=== PATIENT | female | born 1980 | race Caucasian/White ===

== ENCOUNTER 2024-12-22 10:54 | Emergency (ER) | payer OTHER, SELFPAY ==
--- NOTE | ~2024-12-22 | XR_ITS ---
EXAMINATION: XR CHEST 2 VIEWS HISTORY: Cough COMPARISON: Comparison is made with the prior examination dated 04/07/2018. FINDINGS: PA and lateral views of the chest are submitted. The lungs are expanded and clear. There is no pleural effusion, pneumothorax, or pulmonary vascular congestion. The heart is normal in size. The bones are intact. XR/XR chest 2V IMPRESSION: No acute cardiopulmonary abnormality. Electronically signed by: Julio Schofield MD 12/22/2024 11:41 AM SARINA
--- NOTE | 2024-12-22 10:57 | ECG_ITS ---
Test Reason : palpitation Blood Pressure : */* mmHG Vent. Rate : 84 BPM Atrial Rate : 84 BPM P-R Int : 98 ms QRS Dur : 78 ms QT Int : 362 ms P-R-T Axes : 25 32 27 degrees QTcB Int : 427 ms Sinus rhythm with short GA Low voltage QRS Borderline ECG When compared with ECG of 07-Apr-2018 16:30, Nonspecific T wave abnormality now evident in Inferior leads T wave amplitude has decreased in Lateral leads Referred By: Generic ED Physician Electronically Signed By: GURMEET BRADLEY
[2024-12-22 11:08] VITALS: BP 119/73; PULSE 84; RESP 18; TEMP 36.7; O2SAT 97; BMI 24.9
--- NOTE | 2024-12-22 11:12 | ED_ITS ---
HPI - General Adult General Chief complaint: Arrhythmia/Palpitations Stated complaint: Chest fluttering randomly chest tightness Related Data Allergies Allergy/AdvReac Type Severity Reaction Status Date / Time No Known Allergies Allergy Unknown Verified 12/22/24 11:10 penicillin V Allergy Unknown hives Verified 12/22/24 11:10 Physical Exam ED Vital Signs: Vital Signs - 24 hr 12/22/24 11:08 12/22/24 14:03 Temperature 98.1 F 98.5 F Pulse Rate 84 88 Respiratory Rate 18 18 Blood Pressure 119/73 123/76 Pulse Oximetry 97 98 Oxygen Delivery Method Room Air BMI result Body Mass Index 24.9 Course Course Course Narrative: Patient had COVID 2 weeks ago and complains of persistent cough, and now has developed intermittent palpitations, as well as a feeling of chest heaviness when she gets her cough over past week Labs x-ray EKG ordered This is rapid medical exam done in triage pending full exam evaluation and disposition by ER provider patient who complained of funny feeling in chest when she coughs a deep infrequent cough 2 weeks after having COVID as well as an intermittent feeling of palpitations, the palpitations never produced dizziness or weakness or fatigue and she is able to do all activities and they pass on her own There is no exertional component no nausea no diaphoresis patient had EKG which showed sinus rhythm of short CT of 98, no acute ST changes no acute ischemic changes Troponin was negative CBC and chemistry were normal Chest x-ray was normal Patient most likely has post COVID symptoms and is Medical Decision Making Lab Data 12/22/24 11:45 12/22/24 11:46 Labs: Lab Results 12/22/24 12/22/24 Range/Units 11:45 11:46 WBC 8.4 (4.8-10.8) X10*3/uL RBC 4.83 (4.20-5.50) X10*6/uL Hgb 13.9 (12.0-16.0) g/dl Hct 41.8 (37.0-47.0) % MCV 86.5 (80.0-98.0) fL MCH 28.8 (27.0-33.0) pg MCHC 33.3 (31.0-35.0) g/dl RDW 12.9 (11.0-16.0) % Plt Count 314 (160-400) X10*3/uL MPV 10.1 (9.4-12.3) fL Immature Gran % (Auto) 0.2 (0.0-0.4) % Neut % (Auto) 67.4 (45-73) % Lymph % (Auto) 20.7 (20-40) % [place] % (Auto) 8.5 (2-11) % Eos % (Auto) 2.4 (0-4) % Baso % (Auto) 0.8 (0-2) % Lymph # (Auto) 1.7 (1.2-4.9) X10*3/uL [place] # (Auto) 0.7 (0.1-1.2) X10*3/uL Eos # (Auto) 0.2 (0.0-0.4) X10*3/uL Baso # (Auto) 0.1 (0.0-0.2) X10*3/uL Abs Immat Gran (auto) 0.02 (0.00-0.03) X10*3/uL Absolute Neuts (auto) 5.7 (2.0-8.3) x10*3/uL Absolute Nucleated RBC 0.000 (0.0-0.012) X10*3/uL Nucleated RBC % (auto) 0.0 (0.0-0.2) /100WBC PT 11.6 (10.9-12.4) SEC INR 1.0 (0.9-1.1) Sodium 143 (135-145) mmol/L Potassium 3.9 (3.3-5.1) mmol/L Chloride 109 H (96-108) mmol/L Carbon Dioxide 27 (22-29) mmol/L Anion Gap 11 L (12-20) BUN 16 (9-16) mg/dL Creatinine 0.78 (0.5-1.4) mg/dL Estim Creat Clear Calc 84.3 Estimated GFR > 60 Random Glucose 87 (60-115) mg/dL Calcium 9.3 (8.4-10.2) mg/dL Troponin I High Sens < 2.7 (<3.5-17.0) ng/L COVID-19 (NOELLE) Negative (Negative) COVID-19 Clin Com See Note Influenza Type A (CHARLA) Negative (Negative) Influenza Type B (CHARLA) Negative (Negative) Influenza A & B Note See Note Discharge Plan Discharge Clinical Impression: Palpitations, Cough, COVID Patient Disposition: Home, Self-Care Additional Instructions: lab work that checked for heart attack was negative, other lab work was negative Chest x-ray was normal EKG no signs of any acute abnormality or worrisome finding As you have palpitations coming intermittently and we did not find their cause follow with primary doctor as you may need a Holter monitor Return any time for dizziness, fainting or feeling faint, any change or worsening chest pain shortness of breath any worse condition or any concerns Print Language: Arabic
[2024-12-22 11:50] LABS: MANUAL DIFF FLAG NO
[2024-12-22 11:51] LABS: Basophils Absolute Auto 0.1 X10*3/uL (0.0-0.2); Basophils Percent Auto 0.8 % (0-2); Eosinophils Absolute Auto 0.2 X10*3/uL (0.0-0.4); Eosinophils Percent Auto 2.4 % (0-4); Hematocrit 41.8 % (37.0-47.0); Hemoglobin 13.9 g/dl (12.0-16.0); Imm Gran Abs Auto 0.02 X10*3/uL (0.00-0.03); Imm Gran Pct Auto 0.2 % (0.0-0.4); Lymphocytes Absolute Auto 1.7 X10*3/uL (1.2-4.9); Lymphocytes Percent Auto 20.7 % (20-40); Mean Corpuscular HGB Conc 33.3 g/dl (31.0-35.0); Mean Corpuscular Hemoglobin 28.8 pg (27.0-33.0); Mean Corpuscular Volume 86.5 fL (80.0-98.0); Mean Platelet Volume 10.1 fL (9.4-12.3); Monocytes Absolute Auto 0.7 X10*3/uL (0.1-1.2); Monocytes Percent Auto 8.5 % (2-11); Neutrophils Absolute Auto 5.7 x10*3/uL (2.0-8.3); Neutrophils Percent Auto 67.4 % (45-73); Platelet Count 314 X10*3/uL (160-400); Red Blood Count 4.83 X10*6/uL (4.20-5.50); Red Cell Distribution Width 12.9 % (11.0-16.0); White Blood Count 8.4 X10*3/uL (4.8-10.8)
[2024-12-22 11:59] LABS: Prothrombin Time 11.6 SEC (10.9-12.4)
[2024-12-22 12:04] LABS: COVID-19 Test Negative (Negative); IDNOW Serial# 55D5AD1C
[2024-12-22 12:06] LABS: Anion Gap 11 (12-20); Blood Urea Nitrogen 16 mg/dL (9-16); Calcium 9.3 mg/dL (8.4-10.2); Carbon Dioxide 27 mmol/L (22-29); Chloride 109 mmol/L (96-108); Creatinine Clr Calc Pharmacy 84.3; Estimated Glomerular Filt Rate > 60; Glucose Random 87 mg/dL (60-115); Potassium 3.9 mmol/L (3.3-5.1); Sodium 143 mmol/L (135-145)
[2024-12-22 12:08] LABS: IDNOW Serial# 16C4AD1C; Influenza A Negative (Negative); Influenza B2 Negative (Negative)
[2024-12-22 12:21] LABS: Troponin-I High Sensitivity < 2.7 ng/L (<3.5-17.0)
[2024-12-22 14:03] VITALS: BP 123/76; PULSE 88; RESP 18; TEMP 36.9; O2SAT 98
--- OUTSIDE RECORDS SUMMARY | 2024-12-22 14:16 | XMS_ITS | Clinical Summary ---
Author Organization [facility] Address [address] [id number] Care Team Providers Care Manager Labor Delivery Name Role Phone Hannah Rice Primary Care Provider [phone] Social History Tobacco Use Types Packs/Day Years Used Date Smoking Tobacco: Never Assessed Comments Unknown Sex and Gender Information Value Date Recorded Sex Assigned at Not on file Legal Sex Female 12:00 PM EST Gender Identity Not on file Sexual Orientation Not on file Plan of Treatment Health Maintenance Due Date Last Done Comments Cervical Cancer Screening 1978 Cologuard 1978 Colon Cancer Screening 1978 Colonoscopy 1978 FOBT / Fit Test 1978 HIV Screening 1978 HPV and Pap Smear 1978 Pap Smear 1978 Sigmoidoscopy 1978 Hepatitis B Vaccines (1 of 3 - 19+ 3-dose series) 1997 DTaP,Tdap,and Td Vaccines (1 - Tdap) 2000 Mammogram 2018 COVID-19 Vaccine ( - 2023-2 5 season) 2024 Influenza Vaccine (#1) 2024 Alcohol/Substance Use Screening 11/22/2024 RSV Vaccine (60+ years old a nd patients) (1 - 1-dose 75+ series) 2053 Pneumococcal Vaccine: Pediat ursula (0-5 Years) and At-Risk Patients (6-64 Years) Aged Out No longer eligible b ased on patient's age to complete this topic Insurance [employer] PPO/EPO/IND Care Teams Manager Labor Delivery Relationship Specialty Start Date End Date Hannah Rice [address] [place] [address] PCP - General 12/27/20
--- OUTSIDE RECORDS SUMMARY | 2024-12-22 14:16 | XMS_ITS | Data Portability ---
Author Organization [facility], , [facility] Address [address] [place] [address] Care Team Providers Care Optical Worker Name Role Phone RAJAN MONROY Primary Care Provider Unavailabl e Assessment No assessment recorded. Plan of Treatment Reminders Order Date Submit Date Provider Last Modified By Organization Details Last Modified Time Details Appointments None record ed. Lab lipid panel, serum 2013 014 [facility], [address] [place] [address], [address], 4 15:26:18 TSH, serum or plasma 2013 014 [facility], [address] [place] [address], [address], 4 16:19:54 wet [place], vagina l 2013 014 [facility], [address] [place] [address], [address], 4 12:35:56 pap, LB + reflex HR HPV if ASC-U, ASC-H, LSIL, HSIL, JOSE LUIS - Reflex HPV testin g for ASCUS and LGSIL 2013 014 mmastroberti [facility] (Out[facility]), [address] [place], [address], 4 10:46:53 CT + NG RNA, PCR, unspec ified specim en 2014 015 [facility], [address] [place] [address], [address], 5 19:22:15 pap, LB + reflex HR HPV if ASC-U, ASC-H, LSIL, HSIL, JOSE LUIS - Reflex HPV testin g for ASCUS and LGSIL 2014 015 [facility] (Outpatient), [address] [place], [address], 5 11:35:31 vitami n D, 1,25-d ihydro xy, serum 2014 015 [facility], [address] [place] [address], [address], 5 15:01:47 vitami n B12 + folate , serum or blood 2014 015 [facility] [address] [place] [address], [address], 5 13:00:11 CBC 2014 015 [facility], [address] [place] [address], [address], 5 17:23:15 pregna ncy test, urine 2015 016 [facility], [address] [place] [address], [address], 6 17:18:19 Referral allerg y referr al - wants allerg y testin g prior to trial meds, sneezi ng, rhinor edward, itchin g 2014 015 MARQUITA Ellie Larry, [address] [facility], [place], [address], 6 05:02:16 Procedures None record ed. Surgeries None record ed. Imaging None record ed. Medication Orders flucon azole 150 mg tablet 2013 Ananda rea [facility][id number], [address] [place] [address], [address], 5 14:40:17 Patient TargetsNo targets recorded. Patient Instructions Encounter Date Encounter Id Patient Instructions Last Modified By Organization Details Last Modified Time 09/18/2014 [id number] Well Visit, Ages 18 to 65: Care Instructions Not available 09/18/2014 14:32:49 My Health To Do List As we discussed and agreed upon at your visit please work on the following: egraef Not available 09/18/2014 12:35:56 10/25/2015 [id number] learning about t he mediterranean diet [email or web address] Not available 10/25/2015 17:37:21 02/14/2016 [id number] After a discussi on of treatment options, which included consideration of best practices, patient preferences, and the patient? s individual lifestyle and treatment goals, as well as consideration and attempted mitigation of any barriers to meeting the patient? s goals, the following treatment plan and objectives were adopted: - we discussed likely viral gastroenteritis - Supportive care: fluids, rest, bland foods (rice, toast, bananas, applesauce, etc.), small amounts of food at a time - Call if persistent temp of 101 or decrease in urination - Call early next week if diarrhea persists and will order stool testing [email or web address] Not available 02/14/2016 13:11:42 Reason for Referral Allergy Referral for [facility] mental allergy wants allergy testing prior to trial meds, sneezing, rhinorrhea, itching Referring Physician: Myesha Hernandez, Family Medicine, Encounter Date: 10/25/2015 Results Created Date Observation Date Name Description Value Unit Range Abnormal Flag Note LastModifiedBy Organization Detail LastModifiedTime 12/11/19 16 12/11/2015 pregn harish test, urine Result negati ve Not Available [address], [address], 12/11/2015 16:56:41 09/18/20 14 09/18/2014 wet [place] , vagin al [place], Vaginal hyphae , no clue cells. Not Available [address], [address], 09/18/2014 12:29:10 09/18/20 14 09/18/2014 lipid panel , serum cholesterol 219 mg/dL <200 mg/dl Hiram able 200-2 39 mg/dl Borde rline High >240 mg/dl High Not Available [address], [address], 09/18/2014 15:26:17 09/18/20 14 09/18/2014 lipid panel , serum triglyceride s 50 mg/dL <150 mg/dL Hilda l 150-1 99 mg/dL Borde rline High 200-4 99 mg/dL High >500 mg/dL Very High Not Available [address], [address], 09/18/2014 15:26:17 09/18/20 14 09/18/2014 lipid panel , serum direct HDL 81 mg/dL Not Available [address], [address], 09/18/2014 15:26:17 09/18/20 14 09/18/2014 LDL, direc t, serum direct LDL 128 mg/dL RISK CATEG ORY LDL GOAL _ CHD or CHD Risk Equiv alent s <100 mg/dl (10-y ear risk >20%) 2+ Risk Facto rs <130 mg/dl (10-y ear risk <= 20%) 0-1 Risk Facto r? <160 mg/dl ? Almos t all peopl e with 0-1 risk facto r have a 10 year risk <10%, thus 10 year risk asses ment in peopl e with 0-1 risk facto r is not herman claire. Not Available [address], [address], 09/18/2014 15:26:19 09/18/20 14 09/18/2014 TSH, serum or plasm a TSH 0.66 uIU/m L 0.50-6 .00 The Ameri can Colle ge of Endoc rinol ogy and Ameri can Thyro id Assoc iatio n recom mend goal TSH value s betwe en 1.0-2 .5 mIU/m L. Not Available [address], [address], 09/18/2014 16:19:54 09/18/20 14 09/23/2014 CT + NG RNA, PCR, unspe cifie d speci men N. gonorrhoeae Neg negati ve Not Available [address], [address], 09/23/2014 14:40:13 09/18/20 14 09/23/2014 CT + NG RNA, PCR, unspe cifie d speci men C. trachomatis Neg negati ve Not Available [address], [address], 09/23/2014 14:40:13 10/25/20 15 10/25/2015 CBC WBC 7.2 K/? ? ?L 4.0-10 .0 Not Available [address], [address], 10/25/2015 17:23:15 10/25/20 15 10/25/2015 CBC RBC 4.64 M/? ? ?L 3.93-5 .22 Not Available [address], [address], 10/25/2015 17:23:15 10/25/20 15 10/25/2015 CBC HGB 13.3 g/dL 11.2-1 5.7 Not Available [address], [address], 10/25/2015 17:23:15 10/25/20 15 10/25/2015 CBC HCT 40.9 % 34.1-4 4.9 Not Available [address], [address], 10/25/2015 17:23:15 10/25/20 15 10/25/2015 CBC MCV 88.1 ? ? ?L 79.4-9 4.8 Not Available [address], [address], 10/25/2015 17:23:15 10/25/20 15 10/25/2015 CBC MCH 28.7 pg 25.6-3 2.2 Not Available [address], [address], 10/25/2015 17:23:15 10/25/20 15 10/25/2015 CBC MCHC 32.5 g/dL 32.2-3 5.5 Not Available [address], [address], 10/25/2015 17:23:15 10/25/20 15 10/25/2015 CBC plt 280.0 K/? ? ?L 182.0- 369.0 Not Available [address], [address], 10/25/2015 17:23:15 10/25/20 15 10/25/2015 CBC MPV 12.3 9.4-12 .3 Not Available [address], [address], 10/25/2015 17:23:15 10/25/20 15 10/25/2015 CBC neut% 54.9 % 34.0-7 1.1 Not Available [address], [address], 10/25/2015 17:23:15 10/25/20 15 10/25/2015 CBC neut# 4.0 1.6-6. 1 Not Available [address], [address], 10/25/2015 17:23:15 10/25/20 15 10/25/2015 CBC lymph % 28.9 % 19.3-5 1.7 Not Available [address], [address], 10/25/2015 17:23:15 10/25/20 15 10/25/2015 CBC lymph # 2.1 K/? ? ?L 1.2-3. 7 Not Available [address], [address], 10/25/2015 17:23:15 10/25/20 15 10/25/2015 CBC mono% 12.0 % 4.7-12 .5 Not Available [address], [address], 10/25/2015 17:23:15 10/25/20 15 10/25/2015 CBC mono# 0.9 0.2-0. 4 high Not Available [address], [address], 10/25/2015 17:23:15 10/25/20 15 10/25/2015 CBC eo% 3.6 % 0.7-5. 8 Not Available [address], [address], 10/25/2015 17:23:15 10/25/20 15 10/25/2015 CBC eo# 0.3 0.0-0. 4 Not Available [address], [address], 10/25/2015 17:23:15 10/25/20 15 10/25/2015 CBC baso% 0.6 % 0.1-1. 2 Not Available [address], [address], 10/25/2015 17:23:15 10/25/20 15 10/25/2015 CBC baso# 0.0 0.0-0. 1 low Not Available [address], [address], 10/25/2015 17:23:15 10/25/20 15 10/25/2015 CBC RDW-CV 12.5 % 11.7-1 4.4 Not Available [address], [address], 10/25/2015 17:23:15 10/25/20 15 10/29/2015 vitam in D, 1,25- dihyd darshan, serum vitamin D, 1,25 (oh)2, total 46 pg/mL 18-72 Not Available [facility] [address], [place], [address], 10/29/2015 15:01:47 10/25/20 15 10/29/2015 vitam in D, 1,25- dihyd darshan, serum vitamin D3, 1,25 (oh)2 46 pg/mL Not Available [facility] [address], [place], [address], 10/29/2015 15:01:47 10/25/20 15 10/29/2015 vitam in D, 1,25- dihyd darshan, serum vitamin D2, 1,25 (oh)2 <8 pg/mL Vitam in D3, 1,25( OH)2 indic ates both endog enous produ ction and suppl ement ation . Vitam in D2, 1,25( OH)2 is an indic ator of exoge ous sourc es, such as diet or suppl ement ation . Inter preta tion and thera py are based on measu remen t of Vitam in D,1,2 5(OH) 2, Total . This test was devstephen sinclair and its sg tical perfo rmanc e royce cteri stics have been deter mined by [facility] Miguel A lopez [facility], [place], [place]. It has not been clear ed or appro magno by the FDA. This assay has been valid ated pursu ant to the CLIA regul ation s and is used for clini rachel purpo ses. Not Available [facility] [address], [place], [address], 10/29/2015 15:01:47 10/25/20 15 10/30/2015 vitam in B12, serum vitamin B12 569 pg/mL 230-10 50 Not Available [address], [place], [address], 10/30/2015 16:13:56 10/25/20 15 10/30/2015 folat e, serum folate 13 NG/mL 3-16 Not Available [address], [address], 10/30/2015 16:13:57 10/25/20 15 11/03/2015 CT + NG RNA, PCR, unspe cifie d speci men N. gonorrhoeae Neg negati ve Not Available [address], [address], 11/03/2015 19:22:14 10/25/20 15 11/03/2015 CT + NG RNA, PCR, unspe cifie d speci men C. trachomatis Neg negati ve Not Available [address], [address], 11/03/2015 19:22:14 10/29/20 15 10/29/2015 HPV, high- risk, cervi rachel source Cervic al Not Available [facility] [address] [place] [address], [address], 10/31/2015 13:59:35 10/29/20 15 10/29/2015 HPV, high- risk, cervi rachel HPV high risk type 16 Negati ve negati ve Not Available [facility] [address] [place], [address], 10/31/2015 13:59:35 10/29/20 15 10/29/2015 HPV, high- risk, cervi rachel HPV high risk type 18 Negati ve negati ve Not Available [facility] [address] [place], [address], 10/31/2015 13:59:35 10/29/20 15 10/29/2015 HPV, high- risk, cervi rachel HPV high risk other types Negati ve negati ve The follo wing Other High Risk HPV types were not detec jasbir: 31, 33, 35, 39, 45, 51, 52, 56, 58, 59, 66, and 68 Test Perfo rmed by: [facility] [place] [facility] [address], [place] [id number] Labor atory Direc tor: Zachary almendarez II, M.D., Ph.D. Not Available [facility] [address] [place], [address], 10/31/2015 13:59:35 02/17/20 16 02/21/2016 wbc, stool fecal leukocyte stain FECAL LEUKO CYTE STAIN MICRO NUMBE R: [id number] TEST STATU S: FINAL SPECI MEN SOURC E: STOOL SPECI MEN QUALI TY: ADEQU ATE FECAL LEUKO CYTE: Moder ate Detec jasbir Not Available [facility] [address], [place], [address], 02/21/2016 09:00:52 02/17/20 16 02/21/2016 giard ia lambl ia Ag, stool giardia Ag, EIA, stool GIARD IA AG, EIA, STOOL MICRO NUMBE R: [id number] TEST STATU S: FINAL SPECI MEN SOURC E: STOOL SPECI MEN QUALI TY: ADEQU ATE RESUL T 1: Not Detec jasbir NOTE: Due to inter mitte nt ezio ing, one negat tuan sampl e does not neces saril y rule out the prese nce of a anthony itic infec tion. Not Available [facility] [address], [place], [address], 02/21/2016 09:00:52 02/17/20 16 02/21/2016 cultu re, stool shiga toxins, EIA w/rfl to E.coli O157 culture SHIGA TOXIN S, EIA W/RFL TO E.COL I O157 CULTU RE MICRO NUMBE R: [id number] TEST STATU S: FINAL SPECI MEN SOURC E: STOOL SPECI MEN QUALI TY: ADEQU ATE RESUL T: Not Detec jasbir Not Available [facility] [address], [place], [address], 02/21/2016 09:00:53 02/17/20 16 02/21/2016 cultu re, stool campylobacte r, culture CAMPY LOBAC TER, CULTU RE MICRO NUMBE R: [id number] TEST STATU S: FINAL SPECI MEN SOURC E: STOOL SPECI MEN QUALI TY: ADEQU ATE RESUL T: No enter ic Campy lobac ter isola jasbir Not Available [facility] [address], [address], 02/21/2016 09:00:53 02/17/20 16 02/21/2016 cultu re, stool salmonella and shigella, culture SALMO JC AND SHIGE LLA, CULTU RE MICRO NUMBE R: [id number] TEST STATU S: FINAL SPECI MEN SOURC E: STOOL SPECI MEN QUALI TY: ADEQU ATE RESUL T: No Salmo jc or Shige lla isola jasbir Not Available [facility] [address], [address], 02/21/2016 09:00:53 Result Notes None recorded. Problems Name Problem SNOMED Code Status Onset Date Resolution Date Notes Provider Name and Address Organization Details Recorded Time Viral gastroenteriti s 135476334 Active Radha Ortiz NP [address] [place] [address], [address] [place] [address] 6 10:29:11 Problem Notes None recorded. Medical Equipment None Reported. Allergies Allergen ID Allergen Name Allergen Category Reaction Reaction Severity Criticality Documentation Date Start Date Code Code System Note Provider Name and Address Organization Details Recorded Time 132799 mold extract environme nt Not available Not available Not available 10/25/2015 60676 8 [facility] 5 14:38:25 Medications Name Sig Start Date Stop Date Status Note LastModified by Organization Details LastModified Time azithromycin 250 mg tablet TAKE 2 TABLET(S) BY MOUTH GIVEN ONCE A DAY FOR 1 DAY. THEN TAKE 1 TABLET DAILY FOR 4 DAYS. active -ac Not Available Not Available Not Available fluconazole 150 mg tablet TAKE 1 TABLET BY MOUTH ONCE active Not Available Not Available No t Available Tamiflu 75 mg capsule TAKE ONE CAPSULE BY MOUTH TWICE A DAY active -ac Not Available Not Available Not Available Vitals Date Recorded Body weight Heart rate Body mass index (BMI) Body height Systolic blood pressure Diastolic blood pressure Provider Name and Address Organization Details Last Updated DateTime 4 11419.2 3099 g 72 /min 20.5 kg/m2 167.64 cm 92 mm[Hg] 70 mm[Hg] Gemini Zuniga LPN [facility] 4 10:38:42 Date Recorded Heart rate Body height Systolic blood pressure Diastolic blood pressure Provider Name and Address Organization Details Last Updated DateTime 10/25/2015 64 /min 167.64 cm 114 mm[Hg] 60 mm[Hg] Margarita salmeron [facility] 10/25/2015 14:49:54 Date Recorded Body weight Body mass index (BMI) Provider Name and Address Organization Details Last Updated DateTime 10/25/2015 85605.244400 g 21.2 kg/m2 Margarita Arvizu [facility] 10/25/2015 14:51:19 Date Recorded Body weight Body height Body mass index (BMI) Provider Name and Address Organization Details Last Updated DateTime 12/11/2015 41749.23425 g 167.64 cm 21.3 kg/m2 Nery Carter [facility] 12/11/2015 16:23:01 Date Recorded Heart rate Body height Body weight Body temperature Body mass index (BMI) Provider Name and Address Organization Details Last Updated DateTime 02/14/2016 92 /min 167.64 cm 68669.19 284 g 98.3 [degF] 21.3 kg/m2 Natalia Kim [facility] 6 12:10:38 Date Recorded Systolic blood pressure Diastolic blood pressure Provider Name and Address Organization Details Last Updated DateTime 12/11/2015 108 mm[Hg] 64 mm[Hg] Nery Carter [facility] 12/11/2015 16:25:09 Date Recorded Systolic blood pressure Diastolic blood pressure Provider Name and Address Organization Details Last Updated DateTime 02/14/2016 102 mm[Hg] 64 mm[Hg] Natalia Kim [facility] 02/14/2016 15:37:43 Social History Question Answer Notes LastModified by Organizat ion Details LastModified Time Tobacco Smoking Status Former Smoker Quit 2002 BRANDYN Butler, [facility] 09/18/2014 10:38:42 What Is Your Level Of Alcohol Consumption? Occasional Information not available 09/18/2014 Do You Wear A Helmet When Biking? Yes Information not available 10/25/2015 What Is Your Level Of Caffeine Consumption? None Information not available 10/25/2015 How Much Tobacco Do You Chew? None Information not available 10/25/2015 What Type Of Diet Are You Following? SPECIFIC 10/25/15- 30 Diet-ac Information not available 10/25/2015 Which Illicit Or Recreational Drugs Have You Used? None History Of Experimental Drug Usage (including Cocaine Marijuana) Denies Addiction, Stopped Without Issue 1998 Information not available 09/18/2014 Education Post Graduate Information not available 09/18/2014 When Did You Quit Smoking? 16+yearssince lastcigarette Information not available 10/25/2015 How Many Days In The Past Year Have You Had A Heavy Drinking Consumption (4+ Female, 5+ Male)? 0 Information not available 10/25/2015 Are There Any Guns Present In Your Home? No Information not available 09/18/2014 Live Alone Or With Others? With Others Fiance And Miguel Angel Half Of The Time [email or web address] Information not available 10/25/2015 Does The Patient Have Difficulty Speaking Kenyan? No Information not available 10/25/2015 Does The Patient Have Difficulty Reading Kenyan? No Information not available 10/25/2015 Transgender No Informatio n not available 10/25/2015 Marital Status Domestic Partner Fiance [id number] Information not available 09/18/2014 Mosquito Repellent Used Routinely Yes Natural Information not available 10/25/2015 How Many Children Do You Have? 1 Daughter Selma 07/20/07. Information not available 09/18/2014 Are There Any Occupational Health Risks Where You Work? Stress Information not available 10/25/2015 What Is Your Current Pack Years? 10packyears Information not available 10/25/2015 Seat Belts Used Routinely Yes Information not available 10/25/2015 Are You Sexually Active? Yes Information not available 09/18/2014 Smoke Alarm In Home Yes Information not available 10/25/2015 What Types Of Sporting Activities Do You Participate In? No Information not available 10/25/2015 General Stress Level High 10/25/15-anxiet y Constant At A Low Level-ac Information not available 10/25/2015 Do You Use Sunscreen Routinely? No Information not available 10/25/2015 Sex: Unknown Functional Status None recorded. Mental Status None recorded. Family History Relationship Description Onset Age of this Age Resolved Age Notes LastModified by Organization Details LastModified Time Maternal Grandfather Myocardial infarction 55 [email or web address] Not available 02/13 13:05:43 Father Malignant neoplastic disease [email or web address] Not available 2015 13:05:43 Mother Hypothyroidi sm [email or web address] Not available 2015 13:05:43 Notes:no breast ca, no colon ca, Medical History Condition Response PSYCHIATRIC Anxiety Y Gynecological History Statement/Question Response Date of LMP 10/04/2015 Menses Monthly Y Hysterectomy N History of Abnormal Pap Y Current Control Method None LMP Approximate Obstetrics History GPAL:G 0 P 0 0 0 0 Past Encounters Encounter ID Performer Location Encounter Start Date Encounter Closed Date Diagnosis/Indication Diagnosis SNOMED-CT Code Diagnosis ICD10 Code Diagnosis Note [id number] Georgia Huitron i , [facility], [address]ICE [address] [place] [address] 09/18/2014 10:18:36 09/18/2014 12:18:26 Adult health examination 710468826 see Risk Assessment and Lifestyle Change Counseling section above. overall healthy 34 year old with low risk from family history for CAD, breast ca or colon cancer. pap smear completed. pt does have chronic yeast infections . please see below for plan. anticipato ry guidance discussed. Counseling 933847220 Screening for malignant neoplasm of cervix 275670328 Chronic vaginitis 03118242 recurrent yeast. yeast seen today on exam. > than 4 episodes per year. discussed risk benefit of suppressiv e therapy.taylor s monitored diet without improvemen t. pt would prefer to treat. [id number] Myesha Hernandez MD , [facility], [address] [place] [address] 10/25/2015 14:15:22 10/25/2015 15:15:45 Adult health examination 598972836 Z00.01 Counseling 661058164 Z71 .9 Anxiety 65526117 F41.9 meds not helpful in past continue self care healthy diet, exercise, therapy Fatigue 39417218 R53.83 ongoing, not new or worse but feels she needs investigat ed labs below six mo f/u diet/exerc ise Environmental allergy 42 7919771 T78.49XA Venereal d isease screening 917622863 Z11.3 Screening for malignant neoplasm of cervix 321091369 Z12.4 [id number] oKrin Fuller , [facility], [address] [place] [address] 12/11/2015 16:15:56 12/12/2015 13:15:12 Lymphadenopathy 51167472 R59.0 very small node under right ear, 1-2 mm no other sx piercing mild red, no active infection, could be irritated reassuranc e today Nausea 767896336 R11.0 morning only, associated with fatigue negative ? stress or early viral infection f/u if sx persist or new sx develop [id number] Sonali Alvares NP , [facility], [address] [place] [address] 02/14/2016 11:59:36 02/14/2016 12:39:54 Viral gastroenteritis 636758151 A08.4 Health Concerns Section Related Observation LastModified by Organization Detai ls LastModified Time None Recorded Concern Status LastModified by Organization Details LastModified Time None Recorded Advance Directives Directive None Recorded Payers Encounter Date Sequence Insurance Name Policy Number Policy Goyal Covered Member ID Goyal Member ID Guarantor Name 09/18/2014 1 [employer] [id number] 1 Tamara Kingsley [id number] Tamara Ramos 10/25/2015 1 [place] [facility] [id number] Tamara Kingsley [id number] Tamara Ramos 12/11/2015 1 [place] [facility] [id number] Tamara Kingsley [id number] Tamara Ramos 02/14/2016 1 [place] [facility] [id number] Tamara Kingsley [id number] Tamara Ramos Notes Date Note Type Note Provider Name and Address Organization Details Recorded Time 10/25/2015 text/html Physical Exam/FemaleRepor jasbir bypatient.Sharon main is here for a Personal Health Appraisal. She describes her health status as fair. Patient's health is the same as last year.Notes:WOuld like pap done today. Has hx low vitamin D. Wonders about other screening. Pt feels tired all the time; chronic anxiety for 10 years. Is taking Vitamin D, 6,000 iu a day. Doesn't recall last check, likely a couple years ago. Feels like the tired isn't new, but wants to figure it out. Does yoga and acupuncture. Has a therapist and a couples therapist. Myesha Hernandez MD [address] [place] [address], [phone], [facility] 10/25/2015 15:53:42 12/11/2015 text/html Here with a concern about a lump in her ear. Not near piercing. No recent piercing. Doesn't hurt. Noted it a week ago. Not changing, not hurting. First seemed small like a grain under her skin, now is bigger after she touched it a bit. Not getting smaller. Not getting further bigger. Doesn't have a head. Otherwise feels a little sick. Some mild sore throat and nausea. No fever. Nausea mostly in the morning. LMP 3 weeks ago. Not trying to get but states it is possible. Menses was heavy. LMP was very late. Throat was more scratchy. Has low energy. No ear pain. No runny nose. Myesha Hernandez MD [address] [place] [address], [phone], [facility] 12/11/2015 17:18:53 02/14/2016 text/html pt presents with diarrhea since wednesday. - returned from [place] yesterday. no pain or bleeding with BM - no cough, sinus congestion, sob, ear pain, TAYLOR, muscle aches, fever - good fluid intake. today had a normal BM Sonali Alvares NP [address] [place] [address], [phone], [facility] 02/14/2016 15:39:30 OBGyn Episode No OBEpisode recorded.
--- OUTSIDE RECORDS SUMMARY | 2024-12-22 14:16 | XMS_ITS | Continuity of Care Document ---
Author Organization [facility] Address [address] [place] [address] Dr [address] [place] [id number] Phone Care Team Providers Care Ship'S Electronic Warfare Officer Name Role Phone Aden MALIK, TYLER, Julio DUMAS Unavailable U navailable Procedures Procedure Date Office/Outpt E&M Established 25 Mins- CT & [place] Duplex Scan-extrem Veins; Comp- CT & [place] Duplex Scan-extrem Veins; Comp Office/Oupt E&M New Pt 45 Mins 23 Advance Directives Directive Yes / No Effective Date File Name No Information Encounters Encounter Description Practice Location Reason(s) For Visit Diagnoses Date Provider Providers Copied on Encounter Office/Outpt E&M Established 25 Mins- [facility] & [place] [facility], [address] [place] [address] Dr [address], [place], [id number], [place] tel:[phone] CVR [place] Pruritus, unspecifiedChro dong venous hypertension (idiopathic) with other complications of bilateral lower extremityCramp and spasmRestless legs syndrome 4 Aden MALIK, ALESIA SCOTT. [address] [facility] [address], [place], [place], [id number] , [place]. tel:[phone] Referring Provider: Venus Segura MD D, [address] [facility] [address] [place], [address]. tel:[phone] [facility], [address] [place] [address] [facility] [address], [place], [id number], tel:[phone] CVR [place] Pain in right legPain in left leg May-0 3- 4 Aden MALIK, RVT, ALESIA Kim. [address] [address], [place], [place], [id number] , [place]. tel:[phone] Referring Provider: Venus Contreras, [address], [address]. tel:[phone] [facility], [address] [place] [address] [address], [place], [id number], tel:[phone] CVR [place] Varicose veins of bilateral lower extremities with pain Sep-2 0- 3 David MALIK FACS RVT ALESIA Trejo. [facility] [address], [place], [address], [place]. tel:[phone] Referring Provider: Venus Contreras, [address], [address]. tel:[phone] Office/Oupt E&M New Pt 45 Mins [facility], [address] [place] [address] [address], [place], [id number], tel:[phone] CVR [place] Pain in right lower legPain in left lower legPain in right legRestless legs syndromePruritu s, unspecifiedPain in left legCramp and spasmVaricose veins of bi low extrem w oth complications Sep-2 0- 3 David MALIK FACS RVT ALESIA Trejo. [address] [facility], [address] [address], [place], [address], [place]. tel:[phone] Referring Provider: Venus Contreras, [address] [facility] [address], [place], [address]. tel:[phone] Family History Family Member Type Diagnosis Age At Onset No Information Payers Payer name Insurance type Covered green party ID Nestor Dewitt (s) CI [id number] Social History Type Description Quantity Date Captured Comments Alcohol Use Details Unknown Caffeine Use Details Unknown Tobacco Use Status Current non-smoker Smoking Status Never Smoker Non-Smoking Tobacco Use Details : No Details Available : No Details Available Sex Female Vital Signs Date / Time: Height Weight BMI Pulse Rate Blood Pressure Temperature Respiratory Rate Body Surface Area Head Circumference Head Circ. Percentile Wt./[place]. Percentile BMI percentile Pulse Ox Inhaled Ox 64.860 kg (143.00 lbs) 23.1 5 kg/m eter (2) 110/68 mm[Hg] Chief Complaint And Reason For Visit No Information Reason For Referral Reason For Referral No Information Plan Of Treatment Date Type Action Status Goal Diet education completed Goal Diet education completed Referral Ordered: Weight management: Referral to physician timeframe: 3 Months (related to Body mass index (BMI) 23.0-23.9, adult) ordered Referral Ordered: Weight management: Referral to physician timeframe: 3 Months (related to Body mass index (BMI) 23.0-23.9, adult) ordered History Of Present Illness Encounter Date Complaint History Of Prese nt Illness No Information Functional Status Date Functional Assessmen t No Information Instructions Date Instruction Additional Infor piper Patient education booklet given Related to Chronic venous hypertension (idiopathic) with other complications of bilateral lower extremity Lifestyle education Related to [place] mass index (BMI) 23.0-23.9, adult Giving Encouragement to exercise Related to Body mass index (BMI) 23.0-23.9, adult Diet education Related to Body mass index (BMI) 23.0-23.9, adult Pre and post instruc tions reviewed and provided Related to Chronic venous hypertension (idiopathic) with other complications of bilateral lower extremity Pre and post instruc tions reviewed and provided Related to Varicose veins of bi low extrem w oth complications Patient education booklet given Related to Varicose veins of bi low extrem w oth complications Lifestyle education Related to [place] mass index (BMI) 23.0-23.9, adult Giving Encouragement to exercise Related to Body mass index (BMI) 23.0-23.9, adult Diet education Related to Body mass index (BMI) 23.0-23.9, adult Assessments Type Assessment Date No Information Patient Care Teams Name Effective Dates (start - stop) Status Members No Information
--- OUTSIDE RECORDS SUMMARY | 2024-12-22 14:16 | XMS_ITS | Referral Summary ---
Author Organization [facility] Address [address] [place] [address] Care Team Providers Care Systems Design Engineer Name Role Phone Dwayne Hannah Primary Care Provider [phone] Social History Tobacco Use Types Packs/Day Years Used Date Smoking Tobacco: Never Assessed Comments Unknown Sex and Gender Information Value Date Recorded Sex Assigned at Not on file Legal Sex Female 12:00 PM EST Gender Identity Not on file Sexual Orientation Not on file Plan of Treatment Not on file Insurance [employer] PPO/EPO/IND Care Teams Systems Design Engineer Relationship Specialty Start Date End Date Dwayne Hannah [address] [place] [address] PCP - General 12/27/20
[2024-12-22 14:21] VITALS: BP 123/76; PULSE 88; RESP 18; TEMP 36.9; O2SAT 98
== END 2024-12-22 14:22 | disposition home or self-care (01) ==
PROVIDERS: Physician Assistant Medical; Emergency Provider Emergency Medicine; PCP Family Medicine
DX: U07.1 COVID-19 (principal); R00.2 Palpitations; I49.9 Cardiac arrhythmia, unspecified; R05.9 Cough, unspecified; R42 Dizziness and giddiness; Z11.52 Encounter for screening for COVID-19; Z79.899 Other long term (current) drug therapy
CPT/HCPCS: 71046; 80048; 84484; 85025; 85610; 87502; 87635; 93005; 99283

== ENCOUNTER → 2024-12-22 10:57 | Outpatient (BNV) | payer OTHER, SELFPAY | PROVIDERS: Emergency Provider Emergency Medicine; PCP Family Medicine; Visit Provider Internal Medicine | DX: R00.2 Palpitations (principal) | CPT/HCPCS: 93010 ==

== ENCOUNTER → 2024-12-22 11:09 | Outpatient (BNV) | payer OTHER, SELFPAY | PROVIDERS: PCP Family Medicine; Visit Provider Radiology Diagnostic Radiology | DX: R05.9 Cough, unspecified (principal) | CPT/HCPCS: 71046 ==